=== PATIENT | female | born 1990 | race Caucasian/White ===

== ENCOUNTER 2017-11-24 23:55 | Emergency (ER) | payer MEDICAID ==
[2017-11-25] MEDS ORDERED: ONDANSETRON HCL INJ/PF 4 MG/2 ML SDV IV ONE (00:08)
[2017-11-25] MEDS ORDERED: NORMAL SALINE 1000 ML 1,000 ML IV ONE (00:08)
[2017-11-25] MEDS ORDERED: CAPSAICIN HP 0.075% CREAM 60 GM TP ONE (00:46)
[2017-11-25] MEDS ORDERED: HALOPERIDOL LACTATE INJ 5 MG/1 ML VIAL IV ONE (00:47)
--- NOTE | 2017-11-25 00:49 | ER Document Report ---
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 Patient states that her symptoms started after she began using marijuana again after a period of abstinence due to having similar symptoms in the past. She states that her symptoms are relieved by standing and hot showers. Any use of marijuana dramatically worsens her symptoms. She states that she has been unable to keep down even water for at least the past 2 days and feels very dehydrated. She notes an associated generalized abdominal cramping pain. She has not seen a primary care doctor regarding today's concerns. She denies any fever, diarrhea, dysuria, vaginal bleeding or vaginal discharge. TRAVEL OUTSIDE OF THE [place] IN LAST 30 DAYS: No - Related Data Allergies/Adverse Reactions: No Known Allergies Allergy (Unverified 11/25/17 00:02) Past Medical History - General Information source: Patient - Social History Smoking Status: Never Smoker Frequency of alcohol use: None Drug Abuse: Marijuana Lives with: Alone Family History: Reviewed & Not Pertinent Review of Systems - Review of Systems Notes: Constitutional: Negative for fever. HENT: Negative for sore throat. Eyes: Negative for visual changes. Cardiovascular: Negative for chest pain. Respiratory: Negative for shortness of breath. Gastrointestinal: Positive for abdominal pain and vomiting Genitourinary: Negative for dysuria. Musculoskeletal: Negative for back pain. Skin: Negative for rash. Neurological: Negative for headaches, weakness or numbness. 10 point ROS negative except as marked above and in HPI. Physical Exam - Vital signs Vitals: Temp Pulse Resp BP Pulse Ox 98.7 F 55 L 24 H 137/73 H 97 11/25/17 00:03 11/25/17 00:03 11/25/17 00:03 11/25/17 00:03 11/25/17 00:03 Interpretation: Tachycardic, Tachypneic Notes: PHYSICAL EXAMINATION: GENERAL: Appears uncomfortable but in no acute distress HEAD: Atraumatic, normocephalic. EYES: Pupils equal round and reactive to light, extraocular movements intact, sclera anicteric, conjunctiva are normal. ENT: nares patent, oropharynx clear without exudates. Moderately dry mucous membranes. NECK: Normal range of motion, supple without lymphadenopathy LUNGS: Breath sounds clear to auscultation bilaterally and equal. No wheezes rales or rhonchi. HEART: Regular rate and rhythm without murmurs ABDOMEN: Soft, nontender, normoactive bowel sounds. No guarding, no rebound. No masses appreciated. EXTREMITIES: Normal range of motion, no pitting or edema. No cyanosis. NEUROLOGICAL: No focal neurological deficits. Moves all extremities spontaneously and on command. PSYCH: Moderately anxious SKIN: Warm, Dry, normal turgor, no rashes or lesions noted. Course - Re-evaluation Re-evalutation: 11/25/17 00:48 Patient presents with signs and symptoms most consistent with cannabis induced hyperemesis syndrome. Patient reports a history of the same in the past but admits to heavy cannabis use again. She states that she is certain that this is the cause of her symptoms this today's exactly the same as when she has had this in the past. She states that she has been unable to tolerate fluid intake for at least 2 days and feels significantly dehydrated which is why she came to the emergency department. She denies any focal abdominal pain but does complain of some generalized abdominal discomfort. On examination the. Patient appears moderately uncomfortable, no localized abdominal pain on examination to suggest acute biliary pathology, acute appendicitis, pelvic inflammatory disease, acute pyelonephritis or acute nephrolithiasis. Will obtain basic labs, provide IV fluids, IV haloperidol, topical capsaicin to the abdomen and reassess the patient. - Vital Signs Vital signs: Temp Pulse Resp BP Pulse Ox 98.7 F 55 L 24 H 137/73 H 97 11/25/17 00:03 11/25/17 00:03 11/25/17 00:03 11/25/17 00:03 11/25/17 00:03 - Laboratory Result Diagrams: 11/25/17 00:55 Laboratory results interpreted by me: 11/25/17 00:55 Glucose 121 H Discharge - Discharge Clinical Impression: Cannabinoid hyperemesis syndrome, Persistent vomiting, Dehydration Condition: Good Disposition: HOME, SELF-CARE Additional Instructions: Please avoid all future use of marijuana as this is triggering your symptoms. You have been sent home with Zofran that you can use as needed for additional nausea or vomiting. Continue to try to drink plenty of fluids. Return if you develop a fever greater than 100.4F, have persistent vomiting, worsening of your abdominal pain, or any other symptoms that are worrisome to you.
[2017-11-25] MEDS ORDERED: CAPSAICIN 0.025% CREAM 60 GM ONE (01:16)
[2017-11-25 01:20] LABS: ALANINE AMINOTRANSFERASE 34 U/L (9-52); ALBUMIN 4.2 g/dL (3.5-5.0); ALKALINE PHOSPHATASE 91 U/L (38-126); ANION GAP 15 (5-19); ASPARTATE AMINO TRANSFERASE 21 U/L (14-36); BILIRUBIN,DIRECT 0.3 mg/dL (0.0-0.4); BILIRUBIN,TOTAL 0.7 mg/dL (0.2-1.3); BLOOD UREA NITROGEN 14 mg/dL (7-20); CALCIUM 9.9 mg/dL (8.4-10.2); CARBON DIOXIDE 25 mmol/L (22-30); CHLORIDE 101 mmol/L (98-107); GLUCOSE 121 mg/dL (75-110); LIPASE 181.4 U/L (23-300); POTASSIUM 3.7 mmol/L (3.6-5.0); SODIUM 140.7 mmol/L (137-145); TOTAL PROTEIN 7.1 g/dL (6.3-8.2)
[2017-11-25] MEDS ORDERED: ONDANSETRON ODT 4 MG TAB (6 TAB/ER DISP) PO PRN (01:30)
[2017-11-25 02:13] VITALS: BP 130/68
== END 2017-11-25 02:10 | disposition home or self-care (01) ==
LOC: ER 23:55
DX: F12.188 Cannabis abuse with other cannabis-induced disorder (principal); R11.2 Nausea with vomiting, unspecified; R10.84 Generalized abdominal pain; F41.9 Anxiety disorder, unspecified; E86.0 Dehydration
CPT/HCPCS: 99283; 96361; 96374; 96375; 36415; 83690; 84703; 80053; J1630; J3490 ×2; J2405; J7030

== ENCOUNTER 2018-06-15 06:22 | Emergency (ER) | payer MEDICAID, OTHER ==
[2018-06-15] MEDS ORDERED: ONDANSETRON 4 MG TAB.RAPDIS PO ONE (07:11)
[2018-06-15] MEDS ORDERED: LIDOCAINE 5% (700 MG) TRANSDERMAL ADH..PATCH TP ONE (07:11)
[2018-06-15] MEDS ORDERED: LIDOCAINE 5% (700 MG) TRANSDERMAL ADH..PATCH ONE (07:36)
--- NOTE | 2018-06-15 08:08 | ER Document Report ---
ED General - General Chief Complaint: Nausea/Vomiting Stated Complaint: ARM PAIN Time Seen by Provider: 06/15/18 06:49 TRAVEL OUTSIDE OF THE [place] IN LAST 30 DAYS: No - HPI Patient complains to provider of: arm pain Onset: Other - Healthy 19-year-old female presents for evaluation of left arm tingling and pain, she notes that she has had issues with carpal tunnel syndrome in the past most prominent on the right side but now has progressed to seemingly involving her left side. 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 She is right-hand dominant, denies any other injuries falls traumas or pops in this area recently. She has not tried anything to try and help it feel better, nothing seems to make it any better, nothing seems to make it worse. - Related Data Allergies/Adverse Reactions: No Known Allergies Allergy (Verified 06/15/18 07:11) Past Medical History - General Information source: Patient - Social History Smoking Status: Current Some Day Smoker Family History: Reviewed & Not Pertinent Review of Systems - Review of Systems -: Yes All other systems reviewed and negative Physical Exam - Vital signs Vitals: Temp Pulse Resp BP Pulse Ox 98.3 F 51 L 18 131/86 H 95 06/15/18 06:29 06/15/18 06:29 06/15/18 06:29 06/15/18 06:29 06/15/18 06:29 - General General appearance: Appears well In distress: None - HEENT Head: Normocephalic Eyes: Normal Conjunctiva: Normal Cornea: Normal Extraocular movements intact: Yes Eyelashes: Normal Pupils: PERRL - Respiratory Respiratory status: No respiratory distress Chest status: Nontender - Cardiovascular Rhythm: Bradycardia Heart sounds: Normal auscultation - Abdominal Inspection: Normal Distension: No distension - Back Back: Normal - Extremities General upper extremity: Normal inspection, Nontender, Normal strength, Normal temperature General lower extremity: Normal inspection, Nontender, Normal strength, Normal temperature Arm: Other - The left upper extremity is symmetric with the right upper extremity, there is normal range of motion's in the shoulder, elbows, wrist, 5 out of 5 strength in all, brisk capillary refill and brisk radial pulse in both upper extremities, Patient has a positive Tinel sign in the left wrist, she does not have any obvious ulnar tenderness or exacerbate ability. Course - Re-evaluation Re-evalutation: 19-year-old female who presents with symptoms consistent with previous diagnosis of cannabinoid hyperemesis syndrome. She has known cannabinoid hyperemesis syndrome. She is again smoking cannabis, she is having nausea and taking recurrent hot showers to try and help with the symptoms. She took tends to have hours last night. She denies any pain in the abdomen, or other symptoms. She is confident that this is related to her marijuana use. Did instruct her about cessation of marijuana use. Did give her a prescription for Zofran. She was able to tolerate p.o. in the emergency department and remained in having a benign abdominal examination at that time. Patient was subsequently discharged home with return precautions. - Vital Signs Vital signs: Temp Pulse Resp BP Pulse Ox 98 F 53 L 16 137/97 H 98 06/15/18 08:35 06/15/18 08:35 06/15/18 08:35 06/15/18 08:35 06/15/18 08:35 Discharge - Discharge Clinical Impression: Cannabinoid hyperemesis syndrome, Nausea Trapezius muscle strain Qualifiers: Encounter type: initial encounter Laterality: right Qualified Code(s): S46.811A - Strain of other muscles, fascia and tendons at shoulder and upper arm level, right arm, initial encounter Condition: Good Disposition: HOME, SELF-CARE Instructions: Antinausea Medication ([facility]) Additional Instructions: You were seen today for your nausea and vomiting. It is likely that her nausea and vomiting is a result of your cannabinoid hyperemesis syndrome. You have undergone an examination including a physical exam. You I was worried also have a trapezius strain in your right shoulder. You should avoid smoking marijuana. He should speak to your primary doctor or mental health professional about ongoing management of your feelings. Use the medication for your nausea only as necessary. Return for worsening fevers or chills abdominal pain or any other symptoms. Prescriptions: Ondansetron [Zofran Odt 4 mg Tablet] 1 - 2 tab PO Q4H PRN #15 tab.rapdis PRN Reason: For Nausea/Vomiting
[2018-06-15 08:36] VITALS: BP 137/97
== END 2018-06-15 08:36 | disposition home or self-care (01) ==
LOC: ER 06:22
DX: S46.811A Strain of other muscles, fascia and tendons at shoulder and upper arm level, right arm, initial encounter (principal); R11.2 Nausea with vomiting, unspecified; F17.210 Nicotine dependence, cigarettes, uncomplicated; X58.XXXA Exposure to other specified factors, initial encounter
CPT/HCPCS: 99283; S0119

== ENCOUNTER 2018-06-17 02:53 | Emergency (ER) | payer SELFPAY ==
[2018-06-17] MEDS ORDERED: IBUPROFEN 800 MG TABLET PO ONE (03:37)
[2018-06-17] MEDS ORDERED: PREDNISONE 20 MG TABLET PO ONE (03:37)
--- NOTE | 2018-06-17 03:43 | ER Document Report ---
ED General - General Chief Complaint: Arm Pain Stated Complaint: RIGHT ARM PAIN Time Seen by Provider: 06/17/18 03:20 Mode of Arrival: Ambulatory Information source: Patient TRAVEL OUTSIDE OF THE [place] IN LAST 30 DAYS: No - HPI Notes: Patient is a 27-year-old female history of previous carpal tunnel right arm who is right arm dominant presents with 5-day history of pain to the right posterior neck radiating down the right arm all the way to the hand. The patient denies any specific injury, and states she awakened with the pain. The patient denies any focal numbness or weakness, but she does report of paresthesia/burning sensation down the right arm. The patient reports no cough , congestion, chest pain, difficulty breathing. No fever or chills. No specific repetitive use she can recall. - Related Data Allergies/Adverse Reactions: No Known Allergies Allergy (Verified 06/15/18 07:11) Past Medical History - General Information source: Patient - Social History Smoking Status: Current Some Day Smoker Frequency of alcohol use: None Drug Abuse: Marijuana Lives with: Family Family History: Reviewed & Not Pertinent Renal/ Medical History: Denies: Hx Peritoneal Dialysis Past Surgical History: Reports: Hx Section - x4 Review of Systems - Review of Systems -: Yes All other systems reviewed and negative Physical Exam - Vital signs Vitals: Temp Pulse Resp BP Pulse Ox 98.2 F 91 18 149/85 H 97 06/17/18 02:53 06/17/18 02:53 06/17/18 02:53 06/17/18 02:53 06/17/18 02:53 - Notes Notes: PHYSICAL EXAMINATION: GENERAL: Well-appearing, well-nourished and in moderate discomfort. HEAD: Atraumatic, normocephalic. EYES: Pupils equal round and reactive to light, extraocular movements intact, conjunctiva are normal. ENT: Nares patent, oropharynx clear without exudates. Moist mucous membranes. NECK: Normal range of motion, supple without lymphadenopathy. Some pain reproduction with left lateral rotation of the neck and flexion to the neck with radiation through a right C6 distribution. There is no erythema. No thyromegaly. Pain radiates down the right arm in a right C6 distribution. LUNGS: Breath sounds clear to auscultation bilaterally and equal. No wheezes rales or rhonchi. HEART: Regular rate and rhythm without murmurs ABDOMEN: Soft, nontender, nondistended abdomen. No guarding, no rebound. No masses appreciated. Female : deferred Musculoskeletal: Normal range of motion, no pitting or edema. No cyanosis. NEUROLOGICAL: Cranial nerves grossly intact. Normal speech, normal gait. Normal sensory, motor exams PSYCH: Normal mood, normal affect. SKIN: Warm, Dry, normal turgor, no rashes or lesions noted. Course - Re-evaluation Re-evalutation: 06/17/18 03:45 Patient given ibuprofen and prednisone. Patient was advised that she needs follow-up MRI if the symptoms persist, but she is only described 5 days of symptoms and denies any specific injury. No indication for plain film x-rays. No evidence for central cord syndrome. No specific carpal tunnel syndrome given that the pain is more through the neck, trapezius and shoulder and upper arm and the pain stops at the forearm or dorsal/lateral over C6 region. - Vital Signs Vital signs: Temp Pulse Resp BP Pulse Ox 98.2 F 91 18 149/85 H 97 06/17/18 02:53 06/17/18 02:53 06/17/18 02:53 06/17/18 02:53 06/17/18 02:53 Discharge - Discharge Clinical Impression: Cervical radiculopathy at C6 Condition: Stable Disposition: HOME, SELF-CARE Instructions: Radiculopathy ([facility]), Family Physicians / Practices Additional Instructions: If radicular neck and arm pain continue, then you may need a MRI of the cervical spine to assess for possible disc herniation and nerve root impingement. Prescriptions: Tramadol HCl [Ultram 50 mg Tablet] 50 mg PO Q4HP PRN #30 tab PRN Reason: Methocarbamol [Robaxin 500 mg Tablet] 500 mg PO Q6HP PRN #30 tablet PRN Reason: Ibuprofen 800 mg PO Q8HP PRN #30 tablet PRN Reason: Prednisone [Deltasone 10 mg Tablet] 10 mg PO ASDIR PRN #21 tablet PRN Reason:
[2018-06-17 04:08] VITALS: BP 143/72
== END 2018-06-17 04:07 | disposition home or self-care (01) ==
LOC: ER 02:53
DX: M54.12 Radiculopathy, cervical region (principal); M79.601 Pain in right arm; F17.200 Nicotine dependence, unspecified, uncomplicated
CPT/HCPCS: 99283; J7512

== ENCOUNTER 2018-07-14 01:39 | Emergency (ER) | payer SELFPAY ==
--- NOTE | 2018-07-14 02:10 | ER Document Report ---
ED General - General Mode of Arrival: Ambulatory Information source: Patient TRAVEL OUTSIDE OF THE [place] IN LAST 30 DAYS: No - General Chief Complaint: Mouth Problem Stated Complaint: MOUTH PAIN Time Seen by Provider: 07/14/18 01:54 Notes: Patient is a 27 year old female presenting to the emergency department complaining of mouth pain. Patient states her mouth had a sudden onset of a burning sensation that radiated to the back of her throat. She states she also developed "pimples" on the left side of her face. She states she proceeded to rinse her mouth with Listerine when she arrived home and had her boyfriend look inside her mouth. Patient states her boyfriend felt the patient's mouth did not look "right", further stating he noticed "white specks" at the roof of her mouth and she proceeded to come to the emergency department. Patient also complains of her mouth feeling very dry. Patient mentions being recently diagnosed with hyperemesis syndrome. Patient currently has a IUD in place but states that she believes it is . ( SYLVAIN HAM) - Related Data Allergies/Adverse Reactions: No Known Allergies Allergy (Verified 06/15/18 07:11) Past Medical History - General Information source: Patient - Social History Smoking Status: Current Every Day Smoker Cigarette use (# per day): Yes - 1 PPD Chew tobacco use (# tins/day): No Smoking Education Provided: No Frequency of alcohol use: None Drug Abuse: Marijuana Family History: Reviewed & Not Pertinent Past Surgical History: Reports: Hx Section - x4 Review of Systems - Review of Systems Constitutional: No symptoms reported EENT: See HPI Cardiovascular: No symptoms reported Respiratory: No symptoms reported Gastrointestinal: No symptoms reported Genitourinary: No symptoms reported Female Genitourinary: No symptoms reported Musculoskeletal: No symptoms reported Skin: No symptoms reported Hematologic/Lymphatic: No symptoms reported Neurological/Psychological: No symptoms reported -: Yes All other systems reviewed and negative Physical Exam - Vital signs Vitals: Temp Pulse Resp BP Pulse Ox 98.5 F 125 H 16 128/73 H 100 07/14/18 01:46 07/14/18 01:46 07/14/18 01:46 07/14/18 01:46 07/14/18 01:46 - Notes Notes: GENERAL: Alert, interacts well, voice is hoarse. No acute distress. HEAD: Normocephalic, atraumatic. EYES: Pupils equal, round, and reactive to light. Extraocular movements intact. ENT: Oral mucosa moist, tongue midline. Gums minimally inflamed. No ulcerations , no lesions. Posterior orophraynx, uvula and tonsillar pillars are erythematous. NECK: Full range of motion. Supple. Trachea midline. No cervical lymphadenopathy. LUNGS: Clear to auscultation bilaterally, no wheezes, rales, or rhonchi. No respiratory distress. HEART: Regular rate and rhythm. No murmurs, gallops, or rubs. ABDOMEN: Soft, obese, non-tender. Non-distended. Bowel sounds present in all 4 quadrants. EXTREMITIES: Moves all 4 extremities spontaneously. NEUROLOGICAL: Alert and oriented x3. Normal speech. PSYCH: Somewhat anxious. SKIN: Warm, dry, normal turgor. Diffuse small papules across the face extending from lateral eyebrow to the maxilla bilaterally. (SYLVAIN HAM) - Vital Signs Vital signs: Temp Pulse Resp BP Pulse Ox 98.6 F 90 16 125/82 98 07/14/18 03:26 1218 03:26 07/14/18 03:26 07/14/18 03:26 07/14/18 03:26 Discharge - Discharge Clinical Impression: Pharyngitis with viral syndrome Condition: Stable Disposition: HOME, SELF-CARE Additional Instructions: Viral Syndrome: The physician has diagnosed a viral infection. Viruses not only cause "colds," but can cause many different symptoms including generalized aching, fever, headache, cough, diarrhea, nausea, vomiting, sore throat, mouth and tongue sores, skin rashes, and fatigue. The treatment, for the most part, is simply relief of symptoms. This means that antibiotics are usually not given. Rest, fluids, pain medications and, occasionally, medication for the specific symptoms that are most bothersome will be prescribed. Use good handwashing to avoid passing the virus to others. Clean the toilets, sinks, and counter surfaces in bathrooms. Launder clothing in hot water. Contact the physician if you develop any new or unusual symptoms such as severe headache, stiff neck, high fever, chest pain, productive cough, or shortness of breath. You should be rechecked if you don't see marked improvement within seven to 10 days. Take the medications as prescribed. Take Tylenol and ibuprofen for pain. Drink plenty of fluids. Get plenty of sleep. Try to cut back on cigarette smoking. Follow-up with a local medical doctor if not improving. RETURN TO THE EMERGENCY ROOM IF ANY NEW OR WORSENING SYMPTOMS. Prescriptions: Prednisone [Deltasone 10 mg Tablet] 10 mg PO ASDIR PRN #14 tablet PRN Reason: Scribe Attestation: 07/14/18 02:38 I personally performed the services described in the documentation, reviewed and edited the documentation which was dictated to the scribe in my presence, and it accurately records my words and actions. (ROBERT ALANIZ) Ramaibe Documentation - Scribe Written by Dayami:: Dayami Mauricio, 07/14/2018 02:29 acting as scribe for :: Francisco Javier
[2018-07-14] MEDS ORDERED: PREDNISONE 20 MG TABLET PO ONE (03:02)
[2018-07-14 03:27] VITALS: BP 125/82
== END 2018-07-14 03:26 | disposition home or self-care (01) ==
LOC: ER 01:39
DX: J02.9 Acute pharyngitis, unspecified (principal); F17.210 Nicotine dependence, cigarettes, uncomplicated; F12.929 Cannabis use, unspecified with intoxication, unspecified
CPT/HCPCS: 99283; 87070; 87880; J7512

== ENCOUNTER 2018-10-02 07:16 | Emergency (ER) | payer SELFPAY ==
[2018-10-02 07:37] LABS: ABSOLUTE BASOPHILS # (AUTO) 0.1 10^3/uL (0.0-0.2); ABSOLUTE LYMPHOCYTES (AUTO) 2.2 10^3/uL (0.5-4.7); ABSOLUTE MONOCYTES (AUTO) 0.6 10^3/uL (0.1-1.4); ABSOLUTE NEUT (AUTO) 9.5 10^3/uL (1.7-8.2); BASOPHILS % (AUTO) 0.6 % (0-2); EOSINOPHILS % (AUTO) 0.3 % (0-6); HEMATOCRIT 41.7 % (36.0-47.0); HEMOGLOBIN 14.6 g/dL (12.0-15.5); LYMPHOCYTES % (AUTO) 17.3 % (13-45); MEAN CORPUSCULAR HEMOGLOBIN 29.4 pg (27.0-33.4); MEAN CORPUSCULAR HGB CONC 34.9 g/dL (32.0-36.0); MEAN CORPUSCULAR VOLUME 84 fl (80-97); MONOCYTES % (AUTO) 4.9 % (3-13); PLATELET COUNT 362 10^3/uL (150-450); RED BLOOD COUNT 4.96 10^6/uL (3.72-5.28); RED CELL DISTRIBUTION WIDTH 13.5 % (11.5-14.0); SEGMENTED NEUTROPHILS % (AUTO) 76.9 % (42-78); TOTAL CELLS COUNTED % (AUTO) 100 %; WHITE BLOOD COUNT 12.4 10^3/uL (4.0-10.5)
[2018-10-02 07:52] LABS: ALANINE AMINOTRANSFERASE 31 U/L (9-52); ALBUMIN 4.8 g/dL (3.5-5.0); ALKALINE PHOSPHATASE 116 U/L (38-126); ANION GAP 16 (5-19); ASPARTATE AMINO TRANSFERASE 23 U/L (14-36); BILIRUBIN,DIRECT 0.2 mg/dL (0.0-0.4); BLOOD UREA NITROGEN 11 mg/dL (7-20); CALCIUM 10.7 mg/dL (8.4-10.2); CARBON DIOXIDE 22 mmol/L (22-30); CHLORIDE 100 mmol/L (98-107); GLUCOSE 160 mg/dL (75-110); POTASSIUM 4.1 mmol/L (3.6-5.0); SODIUM 137.8 mmol/L (137-145); TOTAL PROTEIN 7.2 g/dL (6.3-8.2)
[2018-10-02] MEDS ORDERED: NORMAL SALINE 1000 ML 1,000 ML IV ONE (08:19)
[2018-10-02] MEDS ORDERED: ONDANSETRON HCL INJ/PF 4 MG/2 ML SDV IV ONE (08:25)
--- NOTE | 2018-10-02 08:26 | ER Document Report ---
ED General - General Chief Complaint: emesis Stated Complaint: VOMITING Time Seen by Provider: 10/02/18 07:48 TRAVEL OUTSIDE OF THE [place] IN LAST 30 DAYS: No - HPI Patient complains to provider of: Vomiting nausea Notes: Patient coming in for evaluation of nausea and vomiting. Patient states that her nausea vomiting likely due to marijuana use. Patient denies any fevers chills diarrhea. Patient upon my evaluation is sitting at the sink drinking water out of the sink in her room. Walking around no obvious distress. Patient denies any past antibiotics. Patient denies any pain - Related Data Allergies/Adverse Reactions: No Known Allergies Allergy (Verified 06/15/18 07:11) Past Medical History - Social History Smoking Status: Current Some Day Smoker Family History: Reviewed & Not Pertinent Renal/ Medical History: Denies: Hx Peritoneal Dialysis Past Surgical History: Reports: Hx Section - x4 Review of Systems - Review of Systems Constitutional: No symptoms reported EENT: No symptoms reported Cardiovascular: No symptoms reported Respiratory: No symptoms reported Gastrointestinal: Nausea, Vomiting Genitourinary: No symptoms reported Female Genitourinary: No symptoms reported Musculoskeletal: No symptoms reported Skin: No symptoms reported Hematologic/Lymphatic: No symptoms reported Neurological/Psychological: No symptoms reported -: Yes All other systems reviewed and negative Physical Exam - Vital signs Vitals: Temp Pulse Resp BP Pulse Ox 98.1 F 78 20 133/74 H 98 10/02/18 07:23 10/02/18 07:23 10/02/18 07:23 10/02/18 07:23 10/02/18 07:23 Interpretation: Normal - General General appearance: Appears well, Alert - HEENT Head: Normocephalic, Atraumatic Eyes: Normal Pupils: PERRL - Respiratory Respiratory status: No respiratory distress Chest status: Nontender Breath sounds: Normal Chest palpation: Normal - Cardiovascular Rhythm: Regular Heart sounds: Normal auscultation Murmur: No - Abdominal Inspection: Normal Distension: No distension Bowel sounds: Normal Tenderness: Nontender Organomegaly: No organomegaly - Back Back: Normal, Nontender - Extremities General upper extremity: Normal inspection, Nontender, Normal color, Normal ROM, Normal temperature General lower extremity: Normal inspection, Nontender, Normal color, Normal ROM, Normal temperature, Normal weight bearing. No: Dayday's sign - Neurological Neuro grossly intact: Yes Cognition: Normal Orientation: AAOx4 Marilyn Coma Scale Eye Opening: Spontaneous Marilyn Coma Scale Verbal: Oriented Marilyn Coma Scale Motor: Obeys Commands Marilyn Coma Scale Total: 15 Speech: Normal Motor strength normal: LUE, RUE, LLE, RLE Sensory: Normal - Psychological Associated symptoms: Normal affect, Normal mood - Skin Skin Temperature: Warm Skin Moisture: Dry Skin Color: Normal Course - Re-evaluation Re-evalutation: 10/02/18 13:51 Laboratory studies not show any critical pathology. Patient had good relief w ith Haldol and Benadryl. Upon last evaluation patient is trying to move her IV herself of the explained to the patient if she would give us a few minutes to take her IV out and I would give her paperwork with nausea medication I will is not informed by the nurse that the patient left with her IV out however did not receive her discharge papers nor did she receive her prescriptions. - Vital Signs Vital signs: Temp Pulse Resp BP Pulse Ox 97.6 F 95 18 136/91 H 98 10/02/18 09:58 10/02/18 09:58 10/02/18 09:58 10/02/18 09:58 10/02/18 09:58 - Laboratory Result Diagrams: 10/02/18 07:04 10/02/18 07:04 Laboratory results interpreted by me: 10/02/18 10/02/18 10/02/18 07:04 07:04 07:20 WBC 12.4 H Absolute Neutrophils 9.5 H Glucose 160 H POC Glucose 154 H Calcium 10.7 H Urine Protein Urine Ketones Urine Blood Ur Leukocyte Esterase 10/02/18 09:54 WBC Absolute Neutrophils Glucose POC Glucose Calcium Urine Protein 100 H Urine Ketones 80 H Urine Blood SMALL H Ur Leukocyte Esterase MODERATE H Discharge - Discharge Clinical Impression: Nausea and vomiting Qualifiers: Vomiting type: unspecified Vomiting Intractability: unspecified Qualified Code(s): R11.2 - Nausea with vomiting, unspecified Condition: Good Disposition: HOME, SELF-CARE Instructions: Vomiting ([facility]) Additional Instructions: Take medication as prescribed for nausea vomiting. Follow-up with your primary care physician return to the ER symptoms worsen. Prescriptions: Ondansetron [Zofran Odt 4 mg Tablet] 1 - 2 tab PO Q4H PRN #30 tab.rapdis PRN Reason: For Nausea/Vomiting Promethazine HCl [Phenergan 25 mg Supp.rect] 1 supp OK Q6H #20 supp.rect Forms: Return to Work
[2018-10-02] MEDS ORDERED: DIPHENHYDRAMINE HCL 50 MG/ML VIAL IV ONE (09:31)
[2018-10-02] MEDS ORDERED: HALOPERIDOL LACTATE INJ 5 MG/1 ML VIAL IV ONE (09:36)
[2018-10-02 09:59] VITALS: BP 136/91
[2018-10-02 10:12] LABS: APPEARANCE,URINE SLIGHTLY-CLOUDY; BILIRUBIN,URINE NEGATIVE (NEGATIVE); COLOR,URINE YELLOW; GLUCOSE, URINE NEGATIVE (NEGATIVE); KETONES,URINE 80 mg/dL (NEGATIVE); LEUKOCYTE ESTERASE,URINE MODERATE (NEGATIVE); NITRITE,URINE NEGATIVE (NEGATIVE); PROTEIN,URINE 100 mg/dL (NEGATIVE); URINE SPECIFIC GRAVITY 1.025; UROBILINOGEN,URINE NEGATIVE mg/dL (<2.0)
== END 2018-10-02 10:33 | disposition home or self-care (01) ==
LOC: ER 07:16
DX: R11.2 Nausea with vomiting, unspecified (principal); F12.90 Cannabis use, unspecified, uncomplicated; F17.200 Nicotine dependence, unspecified, uncomplicated
CPT/HCPCS: 99283; 96361; 96374; 96375; 36415; 82962; 84702; 85025; 81025; 80053; 81001; J1200; J1630; J2405; J7030

== ENCOUNTER 2018-12-01 17:53 | Emergency (ER) | payer SELFPAY ==
[2018-12-01 18:36] VITALS: BP 113/72
--- NOTE | 2018-12-01 19:20 | ER Document Report ---
HPI - HPI Patient complains to provider of: Dysuria Time Seen by Provider: 12/01/18 19:14 Onset: Yesterday Onset/Duration: Gradual Quality of pain: Burning Pain Level: 5 Context: Patient presents complaining of UTI symptoms including dysuria and frequency. Patient denies any back pain nausea, vomiting, fever or hematuria. Associated Symptoms: denies: Fever, Vomiting Exacerbated by: Denies Relieved by: Denies Similar symptoms previously: Yes Recently seen / treated by doctor: No - ROS ROS below otherwise negative: Yes Systems Reviewed and Negative: Yes All other systems reviewed and negative - CONSTITUTIONAL Constitutional: DENIES: Fever, Chills - GASTROINTESTINAL Gastrointestinal: DENIES: Abdominal Pain, Nausea, Patient vomiting - URINARY Urinary: REPORTS: Dysuria, Urgency, Frequency - REPRODUCTIVE Reproductive: DENIES: : - MUSCULOSKELETAL Musculoskeletal: DENIES: Back Pain - DERM Skin Color: Normal Skin Problems: None Past Medical History - General Information source: Patient - Social History Smoking Status: Current Every Day Smoker Smoking Education Provided: Yes Frequency of alcohol use: None Drug Abuse: None Occupation: none Lives with: Family Family History: Reviewed & Not Pertinent - Medical History Medical History: Negative Renal/ Medical History: Denies: Hx Peritoneal Dialysis Past Surgical History: Reports: Hx Section - x4 Vertical Provider Document - CONSTITUTIONAL Agree With Documented VS: Yes Exam Limitations: No Limitations General Appearance: WD/WN, No Apparent Distress - INFECTION CONTROL TRAVEL OUTSIDE OF THE [place] IN LAST 30 DAYS: No - HEENT HEENT: Atraumatic, Normocephalic - NECK Neck: Normal Inspection - RESPIRATORY Respiratory: No Respiratory Distress - CARDIOVASCULAR Cardiovascular: Regular Rate, Regular Rhythm - GI/ABDOMEN Gastrointestinal: Abdomen Soft, Abdomen Non-Tender - BACK Back: Normal Inspection. negative: CVA Tenderness-Right, CVA Tenderness-Left - MUSCULOSKELETAL/EXTREMETIES Musculoskeletal/Extremeties: MAEW - NEURO Level of Consciousness: Awake, Alert, Appropriate Motor/Sensory: No Motor Deficit - DERM Integumentary: Warm, Dry Course - Re-evaluation Re-evalutation: 12/01/18 19:37 Patient with UTI, no concern for obstructive uropathy. Patient afebrile and nontoxic in appearance. Patient declines any testing for STDs at this time. - Vital Signs Vital signs: Temp Pulse Resp BP Pulse Ox 98.1 F 81 14 113/72 98 12/01/18 18:34 04/22/19 18:34 12/01/18 18:34 12/01/18 18:34 12/01/18 18:34 - Laboratory Laboratory results interpreted by me: 12/01/18 19:37 Labs- Entire Visit 12/01/18 18:30 Urine Color YELLOW Urine Appearance CLOUDY Urine pH 6.0 Ur Specific [place] 1.024 Urine Protein 30 H Urine Glucose (UA) NEGATIVE Urine Ketones NEGATIVE Urine Blood MODERATE H Urine Nitrite POSITIVE H Urine Bilirubin NEGATIVE Urine Urobilinogen NEGATIVE Ur Leukocyte Esterase MODERATE H Urine WBC (Auto) 121 Urine RBC (Auto) 19 Urine Bacteria (Auto) 1+ Squamous Epi Cells Auto 5 Amorphous Sediment Auto TRACE Urine Mucus (Auto) MANY Urine Ascorbic Acid NEGATIVE Urine HCG, Qual NEGATIVE Discharge - Discharge Clinical Impression: UTI (urinary tract infection) Qualifiers: Urinary tract infection type: site unspecified Hematuria presence: with hematuria Qualified Code(s): N39.0 - Urinary tract infection, site not specified Condition: Stable Disposition: HOME, SELF-CARE Instructions: Cephalexin ([facility]), Urinary Anesthetic Agent ([facility]), Urinary Tract Infection ([facility]) Additional Instructions: Return immediately for any new or worsening symptoms Followup with your primary care provider, call tomorrow to make a followup appointment Urine culture is pending, we will call if you need any different treatment Forms: Smoking Cessation Education Referrals: [facility] [Provider Group] - Follow up as needed
[2018-12-01 19:31] LABS: AMORPHOUS SEDIMENT,URINE TRACE /HPF; APPEARANCE,URINE CLOUDY; BILIRUBIN,URINE NEGATIVE (NEGATIVE); COLOR,URINE YELLOW; GLUCOSE, URINE NEGATIVE (NEGATIVE); KETONES,URINE NEGATIVE (NEGATIVE); LEUKOCYTE ESTERASE,URINE MODERATE (NEGATIVE); NITRITE,URINE POSITIVE (NEGATIVE); PROTEIN,URINE 30 mg/dL (NEGATIVE); URINE SPECIFIC GRAVITY 1.024; UROBILINOGEN,URINE NEGATIVE mg/dL (<2.0)
[2018-12-01] MEDS ORDERED: CEPHALEXIN 500 MG CAPSULE PO ONE (19:36)
[2018-12-01] MEDS ORDERED: PHENAZOPYRIDINE HCL 100 MG TABLET PO ONE (19:36)
== END 2018-12-01 19:49 | disposition home or self-care (01) ==
LOC: ER 17:53
DX: N39.0 Urinary tract infection, site not specified (principal); R31.9 Hematuria, unspecified; R30.0 Dysuria; R35.0 Frequency of micturition; R39.15 Urgency of urination; F17.200 Nicotine dependence, unspecified, uncomplicated
CPT/HCPCS: 99283; 87086; 81025; 87088; 81001; 87186; J3490

== ENCOUNTER 2019-02-07 11:29 | Emergency (ER) | payer SELFPAY ==
--- NOTE | 2019-02-07 12:16 | ER Document Report ---
ED Medical Screen (RME) - General Chief Complaint: Vaginal Itching Stated Complaint: VAGINAL DISCOMFORT Time Seen by Provider: 02/07/19 11:51 Mode of Arrival: Ambulatory Information source: Patient Notes: Patient presents to the emergency department with vaginal discomfort, vaginal discharge. Also reports that she was feeling pain with void but took some Pyridium and those symptoms are gone away. Reports recent unprotected sex. Denies fever vomiting diarrhea. I have greeted and performed a rapid initial assessment of this patient. A comprehensive ED assessment and evaluation of the patient, analysis of test results and completion of the medical decision making process will be conducted by additional ED providers. Dictation of this chart was performed using voice recognition software; therefore, there may be some unintended grammatical errors. TRAVEL OUTSIDE OF THE [place] IN LAST 30 DAYS: No - Related Data Allergies/Adverse Reactions: No Known Allergies Allergy (Verified 02/07/19 11:30) Past Medical History Renal/ Medical History: Denies: Hx Peritoneal Dialysis Past Surgical History: Reports: Hx Section - x4 Physical Exam - Vital signs Vitals: Temp Pulse Resp BP Pulse Ox 98.2 F 86 18 124/85 96 02/07/19 11:37 02/07/19 11:37 02/07/19 11:37 02/07/19 11:37 02/07/19 11:37 Course - Vital Signs Vital signs: Temp Pulse Resp BP Pulse Ox 98.2 F 86 18 124/85 96 02/07/19 11:37 02/07/19 11:37 02/07/19 11:37 02/07/19 11:37 02/07/19 11:37
[2019-02-07 12:45] LABS: APPEARANCE,URINE CLOUDY; BILIRUBIN,URINE NEGATIVE (NEGATIVE); GLUCOSE, URINE NEGATIVE (NEGATIVE); KETONES,URINE NEGATIVE (NEGATIVE); LEUKOCYTE ESTERASE,URINE MODERATE (NEGATIVE); NITRITE,URINE POSITIVE (NEGATIVE); PROTEIN,URINE NEGATIVE (NEGATIVE); URINE SPECIFIC GRAVITY 1.021
[2019-02-07 12:47] LABS: COLOR,URINE YELLOW
[2019-02-07] MEDS ORDERED: CEFTRIAXONE INJ 250 MG VIAL IM ONE (13:23)
[2019-02-07] MEDS ORDERED: AZITHROMYCIN 250 MG TABLET PO ONE (13:24)
[2019-02-07] MEDS ORDERED: LIDOCAINE 1% INJ-PF (10 MG/ML) 30 ML SDV ONE (13:34)
[2019-02-07 13:35] LABS: BACTERIA (WET MOUNT) 3+ BACTERIA SEEN; RBCS (WET MOUNT) RARE RBCS SEEN; T.VAGINALIS (WET MOUNT) TRICHOMONAS SEEN; WBCS (WET MOUNT) 3+ WBCS SEEN; YEAST (WET MOUNT) NO YEAST SEEN
--- NOTE | 2019-02-07 13:39 | ER Document Report ---
ED General - General Chief Complaint: Vaginal Itching Stated Complaint: VAGINAL DISCOMFORT Time Seen by Provider: 02/07/19 11:51 Mode of Arrival: Ambulatory TRAVEL OUTSIDE OF THE [place] IN LAST 30 DAYS: No - HPI Notes: Patient is a 28-year-old female who presents to the emergency department for evaluation. She complains of dysuria, vaginal discharge, itching, and burning. She denies any fevers or chills. No nausea or vomiting. She states that she had some Pyridium left from a prior UTI, has taken that and it has helped her symptoms. She admits to recent sexual encounters without any sort of STD protection. 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 - Related Data Allergies/Adverse Reactions: No Known Allergies Allergy (Verified 02/07/19 11:30) Past Medical History - General Information source: Patient - Social History Smoking Status: Current Every Day Smoker Family History: Reviewed & Not Pertinent Patient has suicidal ideation: No Patient has homicidal ideation: No Renal/ Medical History: Denies: Hx Peritoneal Dialysis Past Surgical History: Reports: Hx Section - x4 Review of Systems - Review of Systems Constitutional: No symptoms reported EENT: No symptoms reported Cardiovascular: No symptoms reported Respiratory: No symptoms reported Gastrointestinal: No symptoms reported Genitourinary: See HPI Female Genitourinary: See HPI Musculoskeletal: No symptoms reported Skin: No symptoms reported Neurological/Psychological: No symptoms reported Physical Exam - Vital signs Vitals: Temp Pulse Resp BP Pulse Ox 98.2 F 86 18 124/85 96 02/07/19 11:37 02/07/19 11:37 02/07/19 11:37 02/07/19 11:37 02/07/19 11:37 - Notes Notes: Vital signs reviewed, please refer to chart. Head is normocephalic, atraumatic. Pupils equal round, reactive to light. Neck is supple without meningismus. Heart is regular rate and rhythm. Lungs are clear to auscultation bilaterally. Abdomen is soft, nontender, normoactive bowel sounds throughout. General exam reveals appropriate development, mild erythema but no significant lesions appreciated. There is white, thick discharge adherent to the vaginal steen. No significant cervical motion tenderness. Cervical os is closed. Skin is warm and dry. Extremities without cyanosis, clubbing, edema. Course - Re-evaluation Re-evalutation: 02/07/19 13:36 Patient presents to the emergency department for evaluation. Her findings are most consistent with a vaginal candidiasis as well as urinary tract infection. She was offered Diflucan but states that she would try an [id number] preparation. She is advised to use either the 3 or 7-day Monistat, use as directed. I will also treat her with an antibiotic for urinary tract infection, as well as Pyridium for her symptoms. She is advised that the Pyridium does not have any antimicrobial action, and that it is important that she take all the antibiotics as prescribed. She voiced understanding to this. She did opt to accept treatment for gonorrhea and chlamydia as these will not be back by the time she leaves the department. Awaiting results for possible trichomonas. 02/07/19 13:56 Minus is positive, yeast is found to be negative. Given the fact that I will be placing the patient on 2 antibiotics, I did advise her still to use the [id number] yeast medication. She voiced understanding to this. She is advised to start safe sex practices, follow-up with OB, return to the ED with worsening or new concerning symptoms. - Vital Signs Vital signs: Temp Pulse Resp BP Pulse Ox 98.2 F 86 18 124/85 96 02/07/19 11:37 02/07/19 11:37 02/07/19 11:37 02/07/19 11:37 02/07/19 11:37 - Laboratory Laboratory results interpreted by me: 02/07/19 11:54 Urine Blood SMALL H Urine Nitrite POSITIVE H Urine Urobilinogen 4.0 H Ur Leukocyte Esterase MODERATE H 02/07/19 13:56 Urine Color YELLOW 02/07/19 11:54 Urine Appearance CLOUDY 02/07/19 11:54 Urine pH 6.0 (5.0-9.0) 02/07/19 11:54 Ur Specific [place] 1.021 02/07/19 11:54 Urine Protein NEGATIVE mg/dL (NEGATIVE) 02/07/19 11:54 Urine Glucose (UA) NEGATIVE mg/dL (NEGATIVE) 02/07/19 11:54 Urine Ketones NEGATIVE mg/dL (NEGATIVE) 02/07/19 11:54 Urine Blood SMALL (NEGATIVE) H 02/07/19 11:54 Urine Nitrite POSITIVE (NEGATIVE) H 02/07/19 11:54 Ur Leukocyte Esterase MODERATE (NEGATIVE) H 02/07/19 11:54 Urine WBC (Auto) 33 /HPF 02/07/19 11:54 Urine RBC (Auto) 11 /HPF 02/07/19 11:54 Discharge - Discharge Clinical Impression: Vaginal candidiasis, Trichomonal vaginitis UTI (urinary tract infection) Qualifiers: Urinary tract infection type: site unspecified Hematuria presence: without hematuria Qualified Code(s): N39.0 - Urinary tract infection, site not specified Condition: Stable Disposition: HOME, SELF-CARE Instructions: Urinary Tract Infection ([facility]), Trichomonas Infection ([facility]) Additional Instructions: Use the [id number] Monistat as directed until gone. Take the antibiotics as prescribed until gone. Use Pyridium as needed for pain. Follow-up with your returned goods receiving clerk, you should have a Pap smear and further evaluation. Return to the ED with worsening or new concerning symptoms of any sort.
[2019-02-07 14:06] VITALS: BP 122/82
[2019-02-07 15:02] LABS: CHLAM PCR NOT DETECTED (NOT DETECT)
== END 2019-02-07 14:05 | disposition home or self-care (01) ==
LOC: ER 11:29
DX: B37.3 Candidiasis of vulva and vagina (principal); A59.01 Trichomonal vulvovaginitis; N39.0 Urinary tract infection, site not specified; R30.0 Dysuria; N89.8 Other specified noninflammatory disorders of vagina; F17.200 Nicotine dependence, unspecified, uncomplicated
CPT/HCPCS: 99283; 96374; 96375; 87210; 81025; 81001; 87491; 87591; J3490; J0696

== ENCOUNTER 2019-04-22 15:55 | Emergency (ER) | payer SELFPAY ==
[2019-04-22] MEDS ORDERED: ONDANSETRON 4 MG TAB.RAPDIS PO ONE (16:45)
--- NOTE | 2019-04-22 16:47 | ER Document Report ---
ED Medical Screen (RME) - General Chief Complaint: Palpitations Stated Complaint: RAPID HEART RATE Time Seen by Provider: 04/22/19 16:39 Mode of Arrival: Ambulatory Information source: Patient Notes: Patient presents emergency department with complaints of hyperemesis syndrome due to smoking marijuana. Patient reports she last smoked 2 days ago. She reports she has been vomiting multiple times for the past few days. Also reports history anxiety. Patient is very tearful. Talking that she needs Medicaid does not qualify for Medicaid. No fever diarrhea. I have greeted and performed a rapid initial assessment of this patient. A comprehensive ED assessment and evaluation of the patient, analysis of test results and completion of the medical decision making process will be conducted by additional ED providers. Dictation of this chart was performed using voice recognition software; therefore, there may be some unintended grammatical errors. TRAVEL OUTSIDE OF THE [place] IN LAST 30 DAYS: No - Related Data Allergies/Adverse Reactions: No Known Allergies Allergy (Verified 04/22/19 15:56) Past Medical History - Social History Chew tobacco use (# tins/day): No Frequency of alcohol use: None Drug Abuse: Marijuana Renal/ Medical History: Denies: Hx Peritoneal Dialysis Past Surgical History: Reports: Hx Section - x4 Physical Exam - Vital signs Vitals: Temp Pulse Resp BP Pulse Ox 97.9 F 52 L 18 120/82 96 04/22/19 16:05 04/22/19 16:05 04/22/19 16:05 04/22/19 16:05 04/22/19 16:05 Course - Vital Signs Vital signs: Temp Pulse Resp BP Pulse Ox 97.9 F 52 L 18 120/82 96 04/22/19 16:05 04/22/19 16:05 04/22/19 16:05 04/22/19 16:05 04/22/19 16:05
--- NOTE | 2019-04-22 16:49 | ER Document Report ---
ED General - General Chief Complaint: Palpitations Stated Complaint: RAPID HEART RATE Time Seen by Provider: 04/22/19 16:39 Mode of Arrival: Ambulatory Information source: Patient TRAVEL OUTSIDE OF THE [place] IN LAST 30 DAYS: No - Related Data Allergies/Adverse Reactions: No Known Allergies Allergy (Verified 04/22/19 15:56) Past Medical History - General Information source: Patient - Social History Smoking Status: Never Smoker Chew tobacco use (# tins/day): No Frequency of alcohol use: None Drug Abuse: Marijuana Family History: Reviewed & Not Pertinent Patient has suicidal ideation: No Patient has homicidal ideation: No Renal/ Medical History: Denies: Hx Peritoneal Dialysis Past Surgical History: Reports: Hx Section - x4 Physical Exam - Vital signs Vitals: Temp Pulse Resp BP Pulse Ox 97.9 F 52 L 18 120/82 96 04/22/19 16:05 04/22/19 16:05 04/22/19 16:05 04/22/19 16:05 04/22/19 16:05 Course - Vital Signs Vital signs: Temp Pulse Resp BP Pulse Ox 97.9 F 52 L 18 120/82 96 04/22/19 16:05 04/22/19 16:05 04/22/19 16:05 04/22/19 16:05 04/22/19 16:05 - Laboratory Result Diagrams: 04/22/19 16:54 04/22/19 16:54 Laboratory results interpreted by me: 04/22/19 04/22/19 04/22/19 16:54 16:54 16:59 WBC 13.2 H RBC 5.32 H Absolute Neuts (auto) 10.0 H Chloride 97 L Calcium 10.4 H Urine Protein 100 H Urine Ketones 80 H Urine Blood SMALL H Urine Bilirubin MODERATE H Urine Urobilinogen 2.0 H Ur Leukocyte Esterase TRACE H
[2019-04-22 17:15] LABS: ABSOLUTE BASOPHILS # (AUTO) 0.1 10^3/uL (0.0-0.2); ABSOLUTE LYMPHOCYTES (AUTO) 2.4 10^3/uL (0.5-4.7); ABSOLUTE MONOCYTES (AUTO) 0.6 10^3/uL (0.1-1.4); BASOPHILS % (AUTO) 0.6 % (0-2); EOSINOPHILS % (AUTO) 0.2 % (0-6); HEMATOCRIT 44.7 % (36.0-47.0); HEMOGLOBIN 15.2 g/dL (12.0-15.5); LYMPHOCYTES % (AUTO) 18.5 % (13-45); MEAN CORPUSCULAR HEMOGLOBIN 28.6 pg (27.0-33.4); MEAN CORPUSCULAR VOLUME 84 fl (80-97); MONOCYTES % (AUTO) 4.9 % (3-13); PLATELET COUNT 359 10^3/uL (150-450); RED BLOOD COUNT 5.32 10^6/uL (3.72-5.28); RED CELL DISTRIBUTION WIDTH 13.9 % (11.5-14.0); SEGMENTED NEUTROPHILS % (AUTO) 75.8 % (42-78); TOTAL CELLS COUNTED % (AUTO) 100 %; WHITE BLOOD COUNT 13.2 10^3/uL (4.0-10.5)
[2019-04-22 17:37] LABS: ALBUMIN 4.7 g/dL (3.5-5.0); ALKALINE PHOSPHATASE 97 U/L (38-126); ANION GAP 15 (5-19); ASPARTATE AMINO TRANSFERASE 29 U/L (14-36); BILIRUBIN,DIRECT 0.2 mg/dL (0.0-0.4); BILIRUBIN,TOTAL 0.8 mg/dL (0.2-1.3); BLOOD UREA NITROGEN 14 mg/dL (7-20); CALCIUM 10.4 mg/dL (8.4-10.2); CARBON DIOXIDE 26 mmol/L (22-30); CHLORIDE 97 mmol/L (98-107); GLUCOSE 104 mg/dL (75-110); TOTAL PROTEIN 7.5 g/dL (6.3-8.2)
[2019-04-22 18:07] LABS: APPEARANCE,URINE SLIGHTLY-CLOUDY; BILIRUBIN,URINE MODERATE (NEGATIVE); COLOR,URINE AMBER; GLUCOSE, URINE NEGATIVE (NEGATIVE); KETONES,URINE 80 mg/dL (NEGATIVE); LEUKOCYTE ESTERASE,URINE TRACE (NEGATIVE); NITRITE,URINE NEGATIVE (NEGATIVE); PROTEIN,URINE 100 mg/dL (NEGATIVE); URINE SPECIFIC GRAVITY 1.035
[2019-04-22] MEDS ORDERED: NORMAL SALINE 1000 ML 1,000 ML IV ONE (18:22)
[2019-04-22] MEDS ORDERED: ONDANSETRON HCL INJ/PF 4 MG/2 ML SDV IV ONE (20:00)
--- NOTE | 2019-04-22 20:34 | ER Document Report ---
HPI - HPI Time Seen by Provider: 04/22/19 16:39 Pain Level: 2 Notes: Patient is a 28-year-old female with a history of hyperemesis secondary to marijuana smoke who presents complaining of nausea and vomiting with decreased appetite over the past several days. Patient states that her last marijuana intake was 2 days ago. Patient states that she smokes marijuana to help with anxiety. Patient states that she is feeling anxious prior to arrival today and want to come for evaluation. She is otherwise urinating normally and having normal bowel movements. Denies drug allergies. No other concerns or complaints. Last episode of emesis was just prior to arrival. Denies any headache, fever, neck pain, URI, sore throat, chest pain, palpitations, syncope, cough, shortness of breath, wheeze, dyspnea, abdominal pain, nausea/vomiting/diarrhea, urinary retention, dysuria, hematuria, or rash. - ROS Systems Reviewed and Negative: Yes All other systems reviewed and negative - REPRODUCTIVE Reproductive: DENIES: : Past Medical History - General Information source: Patient - Social History Smoking Status: Never Smoker Chew tobacco use (# tins/day): No Frequency of alcohol use: None Drug Abuse: Marijuana Family History: Reviewed & Not Pertinent Patient has suicidal ideation: No Patient has homicidal ideation: No Renal/ Medical History: Denies: Hx Peritoneal Dialysis Past Surgical History: Reports: Hx Section - x4 Vertical Provider Document - CONSTITUTIONAL Agree With Documented VS: Yes Notes: PHYSICAL EXAMINATION: GENERAL: Well-appearing, well-nourished and in no acute distress. HEAD: Atraumatic, normocephalic. EYES: Pupils equal round and reactive to light, extraocular movements intact, sclera anicteric, conjunctiva are normal. ENT: Nares patent and without discharge. oropharynx clear without exudates. No tonsilar hypertrophy or erythema. Moist mucous membranes. NECK: Normal range of motion, supple without lymphadenopathy LUNGS: Breath sounds clear to auscultation bilaterally and equal. No wheezes rales or rhonchi. HEART: Regular rate and rhythm without murmurs, rubs, gallops. ABDOMEN: Soft, nontender, nondistended abdomen. No guarding, no rebound. Normal bowel sounds present. No CVA tenderness bilaterally. Musculoskeletal: FROM to passive/active. Strength 5+/5. Extremities: No cyanosis, clubbing, or edema b/l. Peripheral pulses 2+. Capillary refill less than 3 seconds. NEUROLOGICAL: Cranial nerves grossly intact. Normal speech, normal gait. Normal sensory, motor exams PSYCH: Normal mood, normal affect. SKIN: Warm, Dry, normal turgor, no rashes or lesions noted. - INFECTION CONTROL TRAVEL OUTSIDE OF THE [place] IN LAST 30 DAYS: No Course - Re-evaluation Re-evalutation: 04/22/19 20:31 Patient is an afebrile, well-hydrated, 28-year-old female who presents with resolved nausea vomiting in the suspected setting of hyperemesis secondary to marijuana smoking. Vitals are acceptable without significant tachycardia, tachypnea, or hypoxia. PE is otherwise unremarkable. Patient is nontoxic- appearing and is currently able to tolerate p.o. without difficulty. Labs are unremarkable. No further work-up warranted. She was given fluids and nausea medicine. She has not had any episodes of emesis throughout her stay. Low suspicion/risk for acute appendicitis, bowel obstruction, acute cholecystitis, acute cholangitis, perforated diverticulitis, incarcerated hernia, pancreatitis, perforated ulcer, peritonitis, sepsis, pelvic inflammatory disease, ectopic , tubo-ovarian abscess, ovarian torsion, or other systemic emergent condition at this time. Patient is aware that her condition can change from initial presentation and she needs to monitor symptoms closely and seek medical attention if any acute changes. Conservative measures otherwise for symptoms. Recheck with your PCM in 2-3 days. Consider consult with a station agent. Return to the ED with any worsening/concerning symptoms otherwise as reviewed in discharge. Patient is in agreement. - Vital Signs Vital signs: Temp Pulse Resp BP Pulse Ox 97.9 F 52 L 18 120/82 96 04/22/19 16:05 04/22/19 16:05 04/22/19 16:05 04/22/19 16:05 04/22/19 16:05 - Laboratory Result Diagrams: 04/22/19 16:54 04/22/19 16:54 Laboratory results interpreted by me: 04/22/19 04/22/19 04/22/19 16:54 16:54 16:59 WBC 13.2 H RBC 5.32 H Absolute Neuts (auto) 10.0 H Chloride 97 L Calcium 10.4 H Urine Protein 100 H Urine Ketones 80 H Urine Blood SMALL H Urine Bilirubin MODERATE H Urine Urobilinogen 2.0 H Ur Leukocyte Esterase TRACE H Discharge - Discharge Clinical Impression: Nausea and vomiting Qualifiers: Vomiting type: unspecified Vomiting Intractability: non-intractable Qualified Code(s): R11.2 - Nausea with vomiting, unspecified Condition: Stable Disposition: HOME, SELF-CARE Additional Instructions: Maintain adequate fluid and food intake [place] diet ([employer] Bananas, rice, apples, toast, etc Zofran as needed tylenol if needed Monitor for any worsening symptoms Make sure you are staying hydrated enough to urinate and have normal BM's Recheck with your PCM in 2-3 days Consider consult with Gastroenterology for ongoing/worsening symptoms Return to the ED with any worsening symptoms and/or development of fever, he adache, chest pain, palpitations, syncope, shortness of breath, trouble breathing, abdominal pain, n/v/d, blood in stool/urine, weakness, or other worsening symptoms that are concerning to you. Prescriptions: Hydroxyzine Pamoate [Vistaril 25 mg Capsule] 25 mg PO TID PRN #15 capsule PRN Reason: Ondansetron [Zofran Odt 4 mg Tablet] 1 - 2 tab PO Q4H PRN #15 tab.rapdis PRN Reason: For Nausea/Vomiting Forms: Smoking Cessation Education Referrals: [facility] [Provider Group] - Follow up as needed
[2019-04-22 20:47] VITALS: BP 126/88
--- NOTE | 2019-04-22 22:18 | EKG REPORT ---
SEVERITY:- NORMAL ECG - SINUS RHYTHM : Confirmed by: Makayla Bauer MD 22-Apr-2019 22:17:34
== END 2019-04-22 20:56 | disposition home or self-care (01) ==
LOC: ER 15:55
DX: R11.2 Nausea with vomiting, unspecified (principal); R63.0 Anorexia; F41.9 Anxiety disorder, unspecified; F12.188 Cannabis abuse with other cannabis-induced disorder
CPT/HCPCS: 93005; 36415; 83690; 85025; 81025; 80053; 81001; 93010; S0119; J2405; J7030

== ENCOUNTER 2019-05-07 07:58 | Emergency (ER) | payer SELFPAY ==
--- NOTE | 2019-05-07 08:45 | ER Document Report ---
ED General - General Chief Complaint: Nausea/Vomiting Stated Complaint: VOMITING Time Seen by Provider: 05/07/19 08:24 Mode of Arrival: Ambulatory Information source: Patient TRAVEL OUTSIDE OF THE [place] IN LAST 30 DAYS: No - HPI Patient complains to provider of: emesis Onset: This morning Onset/Duration: Gradual Quality of pain: Achy, Cramping Severity: Mild Context: 28 year old female was doing well after quitting thc use until she used again about a day ago and began with nausea and vomiting like she has previously with thc use. No fever. No urinary symptoms. No vaginal discharge. Associated symptoms: None Exacerbated by: Denies Relieved by: Denies Similar symptoms previously: Yes - Related Data Allergies/Adverse Reactions: No Known Allergies Allergy (Verified 05/07/19 08:25) Past Medical History - Social History Smoking Status: Current Every Day Smoker Chew tobacco use (# tins/day): No Frequency of alcohol use: None Drug Abuse: Marijuana Family History: Reviewed & Not Pertinent Patient has suicidal ideation: No Patient has homicidal ideation: No Renal/ Medical History: Denies: Hx Peritoneal Dialysis Past Surgical History: Reports: Hx Section - x4 Review of Systems - Review of Systems Constitutional: No symptoms reported EENT: No symptoms reported Cardiovascular: No symptoms reported Respiratory: No symptoms reported Gastrointestinal: See HPI, Nausea, Vomiting Genitourinary: No symptoms reported Female Genitourinary: No symptoms reported Musculoskeletal: No symptoms reported Skin: No symptoms reported Hematologic/Lymphatic: No symptoms reported Neurological/Psychological: No symptoms reported Physical Exam - Vital signs Vitals: Temp Pulse Resp BP Pulse Ox 98.0 F 70 18 144/94 H 99 05/07/19 08:02 05/07/19 08:02 05/07/19 08:02 05/07/19 08:02 05/07/19 08:02 Interpretation: Normal - General General appearance: Appears well, Alert - HEENT Head: Normocephalic, Atraumatic Eyes: Normal Pupils: PERRL - Respiratory Respiratory status: No respiratory distress Chest status: Nontender Breath sounds: Normal Chest palpation: Normal - Cardiovascular Rhythm: Regular Heart sounds: Normal auscultation Murmur: No - Abdominal Inspection: Normal Distension: No distension Bowel sounds: Normal Tenderness: Nontender Organomegaly: No organomegaly - Back Back: Normal, Nontender - Extremities General upper extremity: Normal inspection, Nontender, Normal color, Normal ROM, Normal temperature General lower extremity: Normal inspection, Nontender, Normal color, Normal ROM, Normal temperature, Normal weight bearing. No: Dayday's sign - Neurological Neuro grossly intact: Yes Cognition: Normal Orientation: AAOx4 Marilyn Coma Scale Eye Opening: Spontaneous [place] Coma Scale Verbal: Oriented [place] Coma Scale Motor: Obeys Commands Marilyn Coma Scale Total: 15 Speech: Normal Motor strength normal: LUE, RUE, LLE, RLE Sensory: Normal - Psychological Associated symptoms: Normal affect, Normal mood - Skin Skin Temperature: Warm Skin Moisture: Dry Skin Color: Normal Course - Re-evaluation Re-evalutation: 05/07/19 10:05 MDM 28 year old with obese abdomen that is soft and nontender. She is improved here. Symptom complex is compatible with thc emesis and she has had this previously. We discussed treatment and she expressed understanding. - Vital Signs Vital signs: Temp Pulse Resp BP Pulse Ox 98.0 F 70 18 144/94 H 99 05/07/19 08:02 05/07/19 08:02 05/07/19 08:02 05/07/19 08:02 05/07/19 08:02 - Laboratory Result Diagrams: 05/07/19 09:00 05/07/19 09:00 Laboratory results interpreted by me: 05/07/19 05/07/19 05/07/19 09:00 09:00 09:17 WBC 16.0 H Absolute Neuts (auto) 12.3 H Sodium 136.9 L Urine Protein 30 H Urine Ketones 20 H Urine Blood SMALL H Urine Bilirubin SMALL H Urine Urobilinogen 2.0 H Discharge - Discharge Clinical Impression: Tetrahydrocannabinol (THC) use disorder, moderate, dependence Vomiting Qualifiers: Vomiting type: unspecified Vomiting Intractability: non-intractable Nausea presence: with nausea Qualified Code(s): R11.2 - Nausea with vomiting, unspecified Condition: Good Disposition: HOME, SELF-CARE Instructions: Antinausea Medication ([facility]), Vomiting ([facility]) Additional Instructions: Stop smoking marijuiania. Please be on clear liquids for 24 hours. Please ret urn here for any problems or concerns. Prescriptions: Promethazine HCl [Phenergan] 12.5 mg RC TID #8 supp.rect Ondansetron [Zofran Odt 4 mg Tablet] 1 - 2 tab PO Q4H PRN #15 tab.rapdis PRN Reason: For Nausea/Vomiting
[2019-05-07] MEDS ORDERED: DIPHENHYDRAMINE HCL 50 MG/ML VIAL IV ONE (08:46)
[2019-05-07] MEDS ORDERED: METOCLOPRAMIDE HCL INJ/PF 10 MG/2 ML SDV IV ONE (08:46)
[2019-05-07] MEDS ORDERED: RINGERS SOLUTION,LACTATED 1,000 ML IV ONE (08:46)
[2019-05-07] MEDS ORDERED: FAMOTIDINE INJ/PF 20 MG/2 ML SDV IV ONE (08:47)
[2019-05-07 09:13] LABS: ABSOLUTE BASOPHILS # (AUTO) 0.1 10^3/uL (0.0-0.2); ABSOLUTE EOSINOPHILS # (AUTO) 0.1 10^3/uL (0.0-0.6); ABSOLUTE LYMPHOCYTES (AUTO) 2.8 10^3/uL (0.5-4.7); ABSOLUTE MONOCYTES (AUTO) 0.7 10^3/uL (0.1-1.4); ABSOLUTE NEUT (AUTO) 12.3 10^3/uL (1.7-8.2); BASOPHILS % (AUTO) 0.7 % (0-2); EOSINOPHILS % (AUTO) 0.5 % (0-6); HEMATOCRIT 41.8 % (36.0-47.0); HEMOGLOBIN 14.2 g/dL (12.0-15.5); LYMPHOCYTES % (AUTO) 17.5 % (13-45); MEAN CORPUSCULAR HEMOGLOBIN 28.5 pg (27.0-33.4); MEAN CORPUSCULAR VOLUME 84 fl (80-97); MONOCYTES % (AUTO) 4.7 % (3-13); PLATELET COUNT 326 10^3/uL (150-450); RED BLOOD COUNT 4.98 10^6/uL (3.72-5.28); SEGMENTED NEUTROPHILS % (AUTO) 76.6 % (42-78); TOTAL CELLS COUNTED % (AUTO) 100 %
[2019-05-07 09:33] LABS: ALBUMIN 4.4 g/dL (3.5-5.0); ALKALINE PHOSPHATASE 81 U/L (38-126); ANION GAP 10 (5-19); ASPARTATE AMINO TRANSFERASE 20 U/L (14-36); BILIRUBIN,DIRECT 0.1 mg/dL (0.0-0.4); BILIRUBIN,TOTAL 0.9 mg/dL (0.2-1.3); BLOOD UREA NITROGEN 9 mg/dL (7-20); CALCIUM 10.1 mg/dL (8.4-10.2); CARBON DIOXIDE 24 mmol/L (22-30); CHLORIDE 103 mmol/L (98-107); GLUCOSE 103 mg/dL (75-110); POTASSIUM 3.9 mmol/L (3.6-5.0); TOTAL PROTEIN 7.1 g/dL (6.3-8.2)
[2019-05-07 09:43] LABS: AMORPHOUS SEDIMENT,URINE TRACE /HPF; APPEARANCE,URINE CLOUDY; BILIRUBIN,URINE SMALL (NEGATIVE); COLOR,URINE AMBER; GLUCOSE, URINE NEGATIVE (NEGATIVE); KETONES,URINE 20 mg/dL (NEGATIVE); LEUKOCYTE ESTERASE,URINE NEGATIVE (NEGATIVE); NITRITE,URINE NEGATIVE (NEGATIVE); PROTEIN,URINE 30 mg/dL (NEGATIVE); URINE SPECIFIC GRAVITY 1.028
[2019-05-07 10:27] VITALS: BP 125/74
== END 2019-05-07 10:32 | disposition home or self-care (01) ==
LOC: ER 07:58
DX: R11.2 Nausea with vomiting, unspecified (principal); F12.20 Cannabis dependence, uncomplicated; F17.200 Nicotine dependence, unspecified, uncomplicated
CPT/HCPCS: 99283; 96361; 96374; 96375; 36415; 83690; 85025; 81025; 80053; 81001; J1200; J2765; J7120; S0028